=== PATIENT | male | born 1945 ===

== ENCOUNTER 2017-09-25 08:56 | Outpatient (CLI) | payer MEDICARE ==
--- NOTE | 2017-09-25 11:54 | CT ---
CT PELVIS WITH IV AND ORAL CONTRAST: HISTORY: Prostate cancer. Elevated PSA. FINDINGS: The abdomen was not imaged. On the superior-most image, a homogeneous fluid density rounded lesion i s partially imaged, measuring up to 3.2 cm in oblique diameter on the first axial image. There are d egenerative changes of the lumbar spine. Diverticula arise from the partially visualized colon witho ut adjacent inflammation. The urinary bladder is incompletely distended. Fat protrudes into each in guinal canal. The prostate gland is not well visualized and may be surgically absent. No enlarged l ymph nodes are apparent within the pelvis. IMPRESSION: 1. No CT evidence of metastatic disease of the pelvis. 2. Partially visualized cystic lesion, left mid abdomen, on the superior-most image. Origin is not apparent, although there is nothing to suggest that this is an aggressive process. 3. Diverticulosis. No evidence of diverticulitis. POS: [facility]
[2017-09-25] MEDS ORDERED: Iopamidol 370 76% 100 ML VIAL ONE (14:54)
--- NOTE | 2017-09-25 16:57 | NM ---
WHOLE BODY BONE SCAN: 09/25/17 HISTORY: Malignant neoplasm of prostate. Rising PSA following treatment for malignant neoplasm of the prostate . RADIOPHARMACEUTICAL: 33 millicuries of technetium 99m-MDP injected intravenously. COMPARISON: None. FINDINGS: There is focal increased uptake in the right calvarium (posterior frontal bone). This is a suspicious finding. Increased uptake in the sternoclavicular joints, shoulders, wrists, and feet are consistent with dege nerative changes. An age appropriate increased uptake is seen in the upper sternum. Focal increased u ptake in the cervical spine is consistent with degenerative change. No other abnormalities of tracer localization are seen in the skeleton. Tracer excretion of the kidneys is within normal limits. There is urine contamination likely due to incontinence. IMPRESSION: Focal increased uptake in the right calvarium is suspicious for metastatic disease. Further evaluatio n with CT scan is recommended. POS: OFF
== END 2017-09-25 08:57 | disposition home or self-care (01) ==
LOC: NM 08:56
PROVIDERS: ATTEND Urology
DX: R97.21 Rising PSA following treatment for malignant neoplasm of prostate (principal); K57.90 Diverticulosis of intestine, part unspecified, without perforation or abscess without bleeding; K31.9 Disease of stomach and duodenum, unspecified
CPT/HCPCS: 72193; 78306; 82565; A9503

== ENCOUNTER 2017-10-18 13:19 | Outpatient (CLI) | payer OTHER | END 2017-10-18 13:20 | disposition home or self-care (01) | LOC: BICCT 13:19 | PROVIDERS: ATTEND Radiology Radiation Oncology | DX: C61 Malignant neoplasm of prostate (principal); R93.0 Abnormal findings on diagnostic imaging of skull and head, not elsewhere classified | CPT/HCPCS: 70450 ==